=== PATIENT | male | born 1970 | race Hispanic/Latino ===

== ENCOUNTER 2019-05-07 15:21 | Inpatient (IN) | payer OTHER ==
[~2019-05-07] VITALS: Ht 149.9 cm; Wt 54.9 kg
[2019-05-07] MEDS ORDERED: CEFTRIAXONE SODIUM 1 GM ONE (15:44)
[2019-05-07] MEDS ORDERED: LIDOCAINE HCL-MPF 1% 2ML VIAL ONE (15:44)
[2019-05-07] MEDS ORDERED: IBUPROFEN 800 MG TAB ONE (15:45)
[2019-05-07 16:09] LABS: BASOPHILS % (AUTO) 0.7 % (0.0-5.0); EOSINOPHILS % (AUTO) 1.9 % (0.0-8.0); HEMATOCRIT 42.6 % (42-54); MEAN CORPUSCULAR HGB CONC 34.5 g/dL (32.0-36.0); MONOCYTES % (AUTO) 8.6 % (3.0-13.0); NEUTROPHILS % (AUTO) 62.6 % (40.0-77.0); PLATELET COUNT (AUTO) 261 K/uL (130-400); RED BLOOD CELL COUNT(AUTO) 5.07 MIL/uL (4.50-6.20); WHITE BLOOD COUNT (AUTO) 5.7 K/uL (4.8-10.8)
[2019-05-07 16:18] LABS: CREATININE 0.6 mg/dL (0.5-1.5); POTASSIUM 3.8 mmol/L (3.5-5.1)
[2019-05-07 16:21] LABS: INR 0.94 (0.85-1.15); PARTIAL THROMBOPLASTIN TIME 26.6 SEC (26.3-35.5); PROTHROMBIN TIME 9.9 SEC (9.6-11.6)
[2019-05-07 16:27] LABS: ALBUMIN 3.8 g/dL (3.5-5.0); BILIRUBIN,TOTAL 0.5 mg/dL (0.2-1.0); TOTAL PROTEIN, SERUM 7.9 g/dL (6.0-8.3)
[2019-05-07 16:47] LABS: APPEARANCE,URINE Clear (CLEAR); BILIRUBIN,URINE Negative (NEGATIVE); COLOR,URINE Yellow (YELLOW); GLUCOSE, URINE (UA) Negative (NEGATIVE); KETONES,URINE Negative (NEGATIVE); LEUKOCYTE ESTERASE ,URINE Negative (NEGATIVE); NITRATE,URINE Negative (NEGATIVE); OCCULT BLOOD,URINE Negative (NEGATIVE); PH,URINE 5.5 (5.0-8.0); PROTEIN,URINE Negative (NEGATIVE); UROBILINOGEN,URINE 0.2 mg/dL (0.2-1.0)
[2019-05-07] MEDS ORDERED: KETOROLAC TROMETHAMINE 30MG/ML ONE (17:54)
[2019-05-07] MEDS ORDERED: LACTULOSE 20 GM/30 ML UDCUP PO PRN (18:30)
[2019-05-07] MEDS ORDERED: ONDANSETRON HCL 4 MG/2 ML VIAL IV PRN (18:30)
[2019-05-07] MEDS ORDERED: ACETAMINOPHEN 325 MG TAB PO PRN ×2 (18:30)
[2019-05-07] MEDS ORDERED: HYDRALAZINE HCL 20 MG/ML VIAL IV PRN (19:30)
[2019-05-07] MEDS: FAMOTIDINE 20MG TAB 20 MG TAB PO SCH (21:00)
--- NOTE | 2019-05-07 23:45 | NUR ---
ADMIT NOTE ADMIT TO ROOM 314 VIA STRETCHER FROM ER. PATIENT, AWAKE, ALERT, OX3, NO SOB,NO C/O PAIN AT THIS TIME, TEACH PATIENT PLAN OF CARE AND EXPECTED OUTCOME, PATIENT VERBALIZES UNDERSTANDING VIA TEACH BACK
[2019-05-07] MEDS ORDERED: LISI-613 PO (23:58)
[2019-05-08] MEDS: MORPHINE SULFATE 2 MG/ML 1ML SYG IV PRN ×2 (00:14→08:40)
[2019-05-08 04:00] VITALS: BP 146/96
[2019-05-08] MEDS: KETOROLAC TROMETHAMINE 15MG/ML IV PRN ×2 (04:27→19:14)
[2019-05-08 07:30] VITALS: BP 145/90
[2019-05-08] MEDS: FAMOTIDINE 20MG TAB 20 MG TAB PO SCH ×2 (08:36→19:13)
[2019-05-08] MEDS: ENOXAPARIN SODIUM 40 MG/0.4 ML SYRINGE SQ SCH (08:37)
[2019-05-08 11:00] VITALS: BP 145/98
--- NOTE | 2019-05-08 11:15 | NUR ---
RD NOTIFICATION PO INTAKE 50% AND HAS STEADY APPETITE. NO SIGNIFICANT WEIGHT CHANGES NOTED. FAMILY HAS NOTICED PT NOT EATING MUCH FOR A COUPLE OF DAYS NOW. PT CAME IN COMPLAINING OF ABDOMINAL PAIN WHICH SEEMED TO BE AFFECTING HIS APPETITE, PER SIGNIFICANT OTHER. LABS REVIEWED. MEDS REVIEWED. SKIN IS INTACT. NO COMPLAINTS OF N/V/C/D AT THIS TIME. JONH RECOMMENDS TO CONTINUE CURRENT DIET ADD ENSURE BID TO DIET ORDER Addendum: 05/08/19 at [address] Amended: Links added.
--- NOTE | 2019-05-08 14:21 | NUR ---
INITIAL SW met with patient and girlfriend in room. Patient lives with girlfriend. He stated that he just moved from [place]. No home services or DME. Patient is able to complete ADL's independently and drives. 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 Patient has no PCP at this time but he has an appointment with Cindy Hernandez at 05/14/2019. Pharmacy is [facility] located on [facility]. DCP is home Patient has no insurance or benefits. He is being assisted by [employer]. Patient provided with Good RX card for prescriptions and list of community resources for post hospitalization follow up. Addendum: 05/08/19 at 1434 by PARAS FARNSWORTH Amended: Links added.
[2019-05-08 15:29] VITALS: BP 141/97
--- NOTE | 2019-05-08 17:14 | NUR ---
SPOKE TO PT RE CANCER. ADVISED PT WE FORWARD HIS INFO TO HELP BUDDY. IF DR. SAMPSON THINKS AFTER BIOPSY THAT PT GOOD CHANCE OF EXTENDING LIFE WITH AGRRESSIVE TREATMENT, MAY BE ELIGIBLE FOR GUERO CASE. NOTE FOR SW WELL. IF NOT GOOD CHANGE, PT WILL BE [facility] (DID NOT DISCUSS HOSPICE WITH PATIENT.) CM TO FOLLOW , WILL SPEAK TO DR. ORANTES WHEN ROUNDS NEXT
[2019-05-08 19:43] VITALS: BP 155/85
[2019-05-08 23:34] VITALS: BP 145/84
[2019-05-09] MEDS: MORPHINE SULFATE 2 MG/ML 1ML SYG IV PRN ×3 (01:52→13:17)
[2019-05-09 04:22] VITALS: BP 142/86
[2019-05-09 06:02] LABS: BASOPHILS % (AUTO) 0.8 % (0.0-5.0); EOSINOPHILS % (AUTO) 2.8 % (0.0-8.0); HEMATOCRIT 39.3 % (42-54); LYMPHOCYTES % (AUTO) 26.3 % (21.0-51.0); MEAN CORPUSCULAR HEMOGLOBIN 29.2 pg (27.0-33.0); MEAN CORPUSCULAR HGB CONC 34.4 g/dL (32.0-36.0); MEAN CORPUSCULAR VOLUME 84.9 fL (79-99); MONOCYTES % (AUTO) 10.1 % (3.0-13.0); NEUTROPHILS % (AUTO) 59.8 % (40.0-77.0); PLATELET COUNT (AUTO) 251 K/uL (130-400); RED BLOOD CELL COUNT(AUTO) 4.63 MIL/uL (4.50-6.20); RED CELL DISTRIBUTION WIDTH 11.9 % (11.0-15.5); WHITE BLOOD COUNT (AUTO) 5.3 K/uL (4.8-10.8)
[2019-05-09 06:17] LABS: CREATININE 0.9 mg/dL (0.5-1.5); INR 0.95 (0.85-1.15); PARTIAL THROMBOPLASTIN TIME 26.1 SEC (26.3-35.5); POTASSIUM 3.9 mmol/L (3.5-5.1)
[2019-05-09 07:00] VITALS: BP 166/102
--- NOTE | 2019-05-09 07:49 | NUR ---
am shift assessment: npo for bx.of lt.supra-clavicular mass. consent has been signed. will hold [employer] this am.
--- NOTE | 2019-05-09 08:42 | NUR ---
MORPHINE 2MG IV NOW FOR C/O OF PAIN TO ALL BODY PARTS.
[2019-05-09] MEDS: ENOXAPARIN SODIUM 40 MG/0.4 ML SYRINGE SQ SCH (09:00)
[2019-05-09] MEDS ORDERED: TRAMADOL HCL 50 MG TABLET PO PRN (09:00)
[2019-05-09] MEDS: FAMOTIDINE 20MG TAB 20 MG TAB PO SCH ×2 (09:00→19:52)
--- NOTE | 2019-05-09 09:05 | NUR ---
TO RAD DEPT. NOW FOR BX. OF LT. CLAVICLE MASS
--- NOTE | 2019-05-09 10:55 | NUR ---
U/S GD LT SUPRACLAVICULAR MASS BX PROCEDURE PERFORMED BY DR Vanda OCAMPO. PUNCTURE SITE LT CLAVICLE AND PATIENT TOLERATED PROCEDURE WELL. SPECIMEN X 3 COLLECTED AND SENT TO LAB. END OF PROCEDURE AT 1040. BIOPSY NEEDLE REMOVED AND DRESSING APPLIED. NO BLEEDING NOTED. REPORT GIVEN TO Hernandez NEWTON RN AND PATIENT TRANSPORTED TO [facility] VIA BED AT 1055. AAO X3 WITH NO C/O PAIN.
[2019-05-09 11:00] VITALS: BP 137/89
--- NOTE | 2019-05-09 11:00 | NUR ---
REPORT RECEIVED AND PT. RETURNED TO ROOM. AWAKE, N/C, BAND AID IN PLACE TO LT. SHOULDER, JUST BELOW NECK AREA. DENIES PAIN. RECEIVED LOCAL ONLY.
[2019-05-09 16:00] VITALS: BP_SYST 137; BP_DIAS 101; BP_DIAS 89
[2019-05-09] MEDS: KETOROLAC TROMETHAMINE 15MG/ML IV PRN (19:52)
[2019-05-09 20:06] VITALS: BP 158/88
[2019-05-10 00:01] VITALS: BP 157/89
[2019-05-10] MEDS: MORPHINE SULFATE 2 MG/ML 1ML SYG IV PRN ×2 (02:45→12:08)
[2019-05-10 04:00] VITALS: BP 132/86
--- NOTE | 2019-05-10 04:21 | NUR ---
b/p b/p 180/100, no sob, no c/o pain at this time, hydralazine 10 mg ivp given slowly
[2019-05-10 05:13] LABS: BASOPHILS % (AUTO) 0.7 % (0.0-5.0); EOSINOPHILS % (AUTO) 2.5 % (0.0-8.0); HEMATOCRIT 41.2 % (42-54); LYMPHOCYTES % (AUTO) 26.4 % (21.0-51.0); MEAN CORPUSCULAR HEMOGLOBIN 28.9 pg (27.0-33.0); MEAN CORPUSCULAR HGB CONC 34.5 g/dL (32.0-36.0); MEAN CORPUSCULAR VOLUME 83.9 fL (79-99); MONOCYTES % (AUTO) 8.9 % (3.0-13.0); NEUTROPHILS % (AUTO) 61.2 % (40.0-77.0); PLATELET COUNT (AUTO) 260 K/uL (130-400); RED BLOOD CELL COUNT(AUTO) 4.91 MIL/uL (4.50-6.20); RED CELL DISTRIBUTION WIDTH 11.9 % (11.0-15.5)
--- NOTE | 2019-05-10 05:20 | NUR ---
MED EFFECT B/P 138/80 NO C/O PAIN
[2019-05-10 05:43] LABS: CREATININE 0.7 mg/dL (0.5-1.5); POTASSIUM 3.7 mmol/L (3.5-5.1)
[2019-05-10 07:30] VITALS: BP 146/90
[2019-05-10] MEDS: FAMOTIDINE 20MG TAB 20 MG TAB PO SCH (07:51)
[2019-05-10] MEDS: ENOXAPARIN SODIUM 40 MG/0.4 ML SYRINGE SQ SCH (07:52)
[2019-05-10] MEDS ORDERED: LISINOPRIL 20 MG TABLET PO SCH (09:00)
[2019-05-10 11:00] VITALS: BP 128/78
[2019-05-10 16:00] VITALS: BP 148/91
--- NOTE | 2019-05-10 16:30 | NUR ---
DISCHARGED USING TEACH BACK, SIGNIFICANT OTHER PRESENT AN BOTH VERBALIZE UNDERSTANDING OF ALL INST. GIVEN. RX FOR TRAMADOL GIVEN AND INST. TO CALL OFFICE SUNDAY FOR FOLLOW UP APPT ON SUNDAY. SALINE REMOVED AND PT. WHEELED DOWN TO CAR
== END 2019-05-10 17:40 | disposition home or self-care (01) | DRG 580 ==
LOC: EDH 15:21 → EDHIP 15:22 → OBSVTOIN 15:22 → 3CH 22:38
PROVIDERS: ADMIT Internal Medicine; ATTEND Internal Medicine
PROC: 07B23ZX Excision of Left Neck Lymphatic, Percutaneous Approach, Diagnostic (ICD-10-PCS; principal; 2019-05-07)
DX: R22.1 Localized swelling, mass and lump, neck (principal); C79.89 Secondary malignant neoplasm of other specified sites; I10 Essential (primary) hypertension; K76.0 Fatty (change of) liver, not elsewhere classified; K40.90 Unilateral inguinal hernia, without obstruction or gangrene, not specified as recurrent; Z92.21 Personal history of antineoplastic chemotherapy; Z92.3 Personal history of irradiation
CPT/HCPCS: 36415; 71045; 71250; 74176; 76942; 80048; 80053; 81003; 82150; 82550; 83690; 84484; 85025; 85610; 85730; 93005; G0378; J0360; J0696; J1650; J1885; J2405; J3490

== ENCOUNTER 2019-05-21 11:45 | Emergency (ER) | payer OTHER ==
[~2019-05-21 11:45] MED LIST: LISI-613 PO
[2019-05-21 12:19] LABS: BASOPHILS % (AUTO) 0.4 % (0.0-5.0); EOSINOPHILS % (AUTO) 0.6 % (0.0-8.0); HEMATOCRIT 40.8 % (42-54); LYMPHOCYTES % (AUTO) 15.1 % (21.0-51.0); MEAN CORPUSCULAR HEMOGLOBIN 28.9 pg (27.0-33.0); MEAN CORPUSCULAR HGB CONC 34.6 g/dL (32.0-36.0); MEAN CORPUSCULAR VOLUME 83.6 fL (79-99); MONOCYTES % (AUTO) 4.9 % (3.0-13.0); NEUTROPHILS % (AUTO) 78.7 % (40.0-77.0); PLATELET COUNT (AUTO) 328 K/uL (130-400); RED BLOOD CELL COUNT(AUTO) 4.88 MIL/uL (4.50-6.20); RED CELL DISTRIBUTION WIDTH 11.9 % (11.0-15.5); WHITE BLOOD COUNT (AUTO) 9.7 K/uL (4.8-10.8)
[2019-05-21 12:21] LABS: BILIRUBIN,URINE Negative (NEGATIVE); COLOR,URINE Yellow (YELLOW); GLUCOSE, URINE (UA) Negative (NEGATIVE); KETONES,URINE Trace mg/dL (NEGATIVE); LEUKOCYTE ESTERASE ,URINE Negative (NEGATIVE); NITRATE,URINE Negative (NEGATIVE); OCCULT BLOOD,URINE Negative (NEGATIVE); PROTEIN,URINE Negative (NEGATIVE)
[2019-05-21 12:25] LABS: APPEARANCE,URINE CLEAR (CLEAR)
[2019-05-21 12:28] LABS: INR 0.98 (0.85-1.15); PARTIAL THROMBOPLASTIN TIME 25.8 SEC (26.3-35.5); PROTHROMBIN TIME 10.3 SEC (9.6-11.6)
[2019-05-21 12:33] LABS: BACTERIA,URINE Rare /HPF (None Seen); RBC,URINE 0-1 /HPF (0-1); SQUAMOUS EPITHELIAL CELL,UR Rare /HPF (0-2)
[2019-05-21 12:33] LABS: CREATININE 0.8 mg/dL (0.5-1.5); POTASSIUM 3.7 mmol/L (3.5-5.1)
[2019-05-21 12:37] LABS: ALBUMIN 3.8 g/dL (3.5-5.0); BILIRUBIN,TOTAL 0.5 mg/dL (0.2-1.0); TOTAL PROTEIN, SERUM 8.1 g/dL (6.0-8.3)
[2019-05-21] MEDS ORDERED: KETOROLAC TROMETHAMINE 30MG/ML ONE (13:55)
[2019-05-21] MEDS ORDERED: ONDANSETRON HCL 4 MG/2 ML VIAL ONE (13:55)
== END 2019-05-21 15:18 | disposition home or self-care (01) ==
LOC: EDH 11:45
DX: R10.9 Unspecified abdominal pain (principal)
CPT/HCPCS: 36415; 71045; 74176; 80053; 81001; 82150; 82550; 83690; 84484; 85025; 85610; 85730; 93005; 96374; 96375; 99285; J1885; J2405

== ENCOUNTER 2019-05-25 00:09 | Emergency (ER) | payer OTHER ==
[2019-05-25 01:12] LABS: BASOPHILS % (AUTO) 0.6 % (0.0-5.0); EOSINOPHILS % (AUTO) 0.6 % (0.0-8.0); HEMATOCRIT 39.5 % (42-54); LYMPHOCYTES % (AUTO) 26.9 % (21.0-51.0); MEAN CORPUSCULAR HEMOGLOBIN 28.8 pg (27.0-33.0); MEAN CORPUSCULAR HGB CONC 34.4 g/dL (32.0-36.0); MEAN CORPUSCULAR VOLUME 83.7 fL (79-99); MONOCYTES % (AUTO) 7.8 % (3.0-13.0); NEUTROPHILS % (AUTO) 63.8 % (40.0-77.0); PLATELET COUNT (AUTO) 316 K/uL (130-400); RED BLOOD CELL COUNT(AUTO) 4.72 MIL/uL (4.50-6.20); RED CELL DISTRIBUTION WIDTH 12.1 % (11.0-15.5); WHITE BLOOD COUNT (AUTO) 6.7 K/uL (4.8-10.8)
[2019-05-25 01:22] LABS: CREATININE 0.7 mg/dL (0.5-1.5); POTASSIUM 3.5 mmol/L (3.5-5.1)
[2019-05-25 01:23] LABS: INR 1.02 (0.85-1.15); PARTIAL THROMBOPLASTIN TIME 26.1 SEC (26.3-35.5); PROTHROMBIN TIME 10.7 SEC (9.6-11.6)
[2019-05-25] MEDS ORDERED: ONDANSETRON HCL 4 MG/2 ML VIAL ONE (01:23)
[2019-05-25] MEDS ORDERED: KETOROLAC TROMETHAMINE 30MG/ML ONE (01:23)
[2019-05-25] MEDS ORDERED: METOCLOPRAMIDE 10 MG/2 ML VIAL ONE (01:23)
[2019-05-25] MEDS ORDERED: SODIUM CHLORIDE 0.9% 1000ML 2,000 ML IV ONE (01:24)
[2019-05-25] MEDS ORDERED: FAMOTIDINE/PF 20 MG/2 ML VIAL IV ONE (01:24)
[2019-05-25 01:26] LABS: ALBUMIN 3.9 g/dL (3.5-5.0); BILIRUBIN,TOTAL 0.3 mg/dL (0.2-1.0)
[2019-05-25 02:19] LABS: APPEARANCE,URINE Clear (CLEAR); BILIRUBIN,URINE Negative (NEGATIVE); COLOR,URINE Yellow (YELLOW); GLUCOSE, URINE (UA) Negative (NEGATIVE); KETONES,URINE Negative (NEGATIVE); LEUKOCYTE ESTERASE ,URINE Negative (NEGATIVE); NITRATE,URINE Negative (NEGATIVE); OCCULT BLOOD,URINE Negative (NEGATIVE); PROTEIN,URINE Negative (NEGATIVE); UROBILINOGEN,URINE 0.2 mg/dL (0.2-1.0)
[2019-05-25] MEDS ORDERED: MORPHINE SULFATE 4 MG/1ML SYG ONE (03:12)
== END 2019-05-25 03:43 | disposition home or self-care (01) ==
LOC: EDH 00:09
DX: R11.2 Nausea with vomiting, unspecified (principal); R10.84 Generalized abdominal pain; I10 Essential (primary) hypertension
CPT/HCPCS: 36415; 80053; 81003; 82550; 83605; 83690; 85025; 85610; 85730; 93005; 96361; 96374; 96375; 99284; J1885; J2270; J2405; J2765; J3490; J7030